=== PATIENT | female | born 1970 | race African-American/Black ===

== ENCOUNTER 2019-09-01 20:08 | Emergency (ER) | payer OTHER, SELFPAY ==
--- NOTE | ~2019-09-01 | XR_ITS ---
EXAMINATION: XR chest 1V portable 09/01/2019 20:56 INDICATION: Shortness of breath. PROCEDURE: AP portable chest COMPARISON: 04/12/2017 FINDINGS: The lungs are clear. The cardiomediastinal silhouette is within normal limits. There are no pleural effusions. There is no pneumothorax suspected. IMPRESSION: 1: NO ACUTE CARDIOPULMONARY DISEASE. Reviewed, dictated and finalized at location A.
[2019-09-01 20:10] VITALS: BP 159/101; PULSE 102; RESP 20; TEMP 36.5; O2SAT 100
[2019-09-01 20:34] VITALS: O2SAT 100
[2019-09-01 20:35] VITALS: BP 151/98; PULSE 83; RESP 15; O2SAT 100
--- NOTE | 2019-09-01 20:39 | ECG_ITS ---
Measurements Intervals [place] Rate: 87 P: 52 [place]: 149 QRS: 24 QRSD: 105 T: 15 QT: 348 QTc: 420 Interpretive Statements SINUS RHYTHM WITH SINUS ARRHYTHMIA EARLY PRECORDIAL R/S TRANSITION NONSPECIFIC T-WAVE ABNORMALITY- ANT/INF LEADS BORDERLINE ECG Electronically Signed On 09-02-2019 11:59:41 CDT by Vitor Sepulveda D.O.
[2019-09-01 20:57] VITALS: PULSE 79
[2019-09-01 20:59] LABS: Basophils Percent Auto 0.8 % (0.2-1.2); Eosinophils Percent Auto 0.6 % (0-4.4); Hematocrit 43.6 % (37.0-47.0); Hemoglobin 14.5 g/dL (12.0-15.0); Immature Granulocyte Absolute 0.02 K/mm3 (0.00-0.031); Immature Granulocyte Percent A 0.4 % (0-0.5); Lymphocytes Percent Auto 24.7 % (18.3-44.2); Mean Corpuscular HGB Conc 33.3 g/dl (32-36); Mean Corpuscular Hemoglobin 27.2 pg (26-34); Mean Corpuscular Volume 81.8 fl (80-100); Mean Platelet Volume 10.7 fl (7.4-10.4); Monocytes Absolute Auto 0.5 K/mm3 (0.1-0.6); Monocytes Percent Auto 8.9 % (2.6-8.5); Neutrophils Absolute Auto 3.4 K/mm3 (1.3-6.7); Neutrophils Percent Auto 64.6 % (45.5-73.1); Platelet Count Result 324 k/mm3 (150-375); Red Blood Count 5.33 M/mm3 (4.2-5.4); Red Cell Distribution Width 13.2 % (11.5-14.5); White Blood Count 5.3 K/mm3 (4.5-10.0)
[2019-09-01 21:09] LABS: INR 1.1; Prothrombin Time 13.4 Seconds (11.1-14.7)
[2019-09-01 21:10] LABS: Partial Thromboplastin Time 29.1 SECONDS (22.3-36.8)
[2019-09-01 21:11] LABS: Blood Urea Nitrogen 16 mg/dL (7-17); Calcium 9.9 mg/dL (8.4-10.2); Carbon Dioxide 30 mmol/L (22-30); Chloride 98 mmol/L (98-107); Estimated CRCL calculation 78 ml/min; Estimated Glomerular Filt Rate > 60; Glucose 106 mg/dL (65-105); Potassium 3.4 mmol/L (3.4-5.0); Sodium 136 mmol/L (137-145)
[2019-09-01 21:23] LABS: NT Pro B Type Natriuretic Pept < 11 PG/ML (5-100); Troponin I < 0.012 ng/mL (0.000-0.034)
[2019-09-01 21:32] LABS: D Dimer 0.53 ug/mL (<0.48)
--- NOTE | 2019-09-01 21:52 | ED.GENADULT ---
HPI - General Adult General Chief complaint: Shortness of Breath/Dyspnea Stated complaint: sob Time Seen by Provider: 09/01/19 21:41 History of Present Illness HPI narrative: Patient presents from the urgent care center for evaluation for possibility of DVT in the left calf. She has had left calf pain for 3 days without injury or trauma. She has no history of DVT. She has no shortness of breath. She was concerned that the urgent care practitioner saw spots on the chest x-ray. She has a private doctor,Dr. Rachel, which she can follow with tomorrow. She has hypertension tension and takes amlodipine. Her surgeries include left elbow, and tubal ligation. She does not smoke,, or do drugs, or drink alcohol. She also says she feels bloated since finishing up her antibiotics for her sinus infection, and then she says she has a headache of 7 out of 10 but does not want any pain medicine. Related Data Allergies Allergy/AdvReac Type Severity Reaction Status Date / Time No Known Allergies Allergy Unverified 04/12/17 00:19 Review of Systems Review of Systems: Narrative: CONSTITUTIONAL: Denies fever, chills, or sweats. EYES: Denies visual changes, redness, or discharge. ENT: Denies rhinorrhea, congestion, sore throat, or otalgia. CARDIOVASCULAR: Denies chest pain, palpitations, or edema. RESPIRATORY: Denies cough or dyspnea. GASTROINTESTINAL: Denies abdominal pain, nausea, vomiting, or diarrhea. GENITOURINARY: Denies dysuria or hematuria. SKIN: Denies rash or itching. MUSCULOSKELETAL: Denies back pain, joint pain, or myalgia. NEUROLOGIC: Denies headache, numbness, or weakness. . [facility] Past Medical History Medical History (Updated 09/01/19 @ 21:54 by Brandy Han MD) D-dimer, elevated Surgical History Surgical History (Updated 09/01/19 @ 21:54 by Brandy Han MD) History of tubal ligation Family History Family History (Updated 06/27/14 @ 14:41 by DOCTOR UNKNOWN) Mother Patient's mother is Acute myocardial infarction Father Patient's father is Acute myocardial infarction Social History Social History (Updated 09/01/19 @ 21:56 by Brandy Han MD) Smoking status: Former smoker Second hand tobacco smoke exposure: No Smoking end date: 02/23/00 Alcohol intake: never Substance use: never Gender identity (if verbalized by the patient): Female Exam Narrative: Exam Narrative: GENERAL: Well-appearing, well-nourished, and in no acute distress. Acute hair. HEAD: Normocephalic, atraumatic. EYES: PERRLA and EOMI. ENT: Nares clear, no rhinorrhea or epistaxis. Mucous membranes moist. NECK: Supple. CHEST: Clear to auscultation. No respiratory distress. HEART: Regular rate and rhythm. No murmur heard. Normal peripheral pulses. ABDOMEN: Soft, nontender, nondistended, normal active bowel sounds. EXTREMITIES: Normal range of motion. No edema. Both calves measure 17 inches at the fullest part. There is no cord posteriorly. There is no tenderness on exam. SKIN: Warm, dry, no rash. NEURO: No focal deficits. Alert and oriented x3. PSYCH: Normal mood and affect. Course Vital Signs Vital signs: Vital Signs Temperature 97.7 F 09/01/19 20:10 Pulse Rate 102 H 09/01/19 20:10 Respiratory Rate 20 09/01/19 20:10 Blood Pressure 159/101 H 09/01/19 20:10 Pulse Oximetry 100 09/01/19 20:10 Temperature 97.7 F 09/01/19 20:10 Pulse Rate 79 09/01/19 20:57 Respiratory Rate 15 09/01/19 20:35 Blood Pressure 151/98 H 09/01/19 20:35 Pulse Oximetry 100 09/01/19 20:35 Medical Decision Making Medical Records Medical records reviewed: Yes I reviewed the patient's medical records. Vital Signs Vital Signs: Vital Signs Temperature 97.7 F 09/01/19 20:10 Pulse Rate 102 H 09/01/19 20:10 Respiratory Rate 20 09/01/19 20:10 Blood Pressure 159/101 H 09/01/19 20:10 Pulse Oximetry 100 09/01/19 20:10 Temperature 97.7 F 09/01/19 20:10
[2019-09-01] MEDS: ENOXAPARIN 100 MG/ML SYRINGE SUB-Q (22:12)
[2019-09-01] MEDS: ACETAMINOPHEN 325 MG TABLET 650 MG PO (22:34)
[2019-09-01 22:36] VITALS: BP 165/116; PULSE 87; RESP 18; O2SAT 99
--- NOTE | 2019-09-01 22:37 | PC.NURSE ---
While going over d/c information Pt states she having a head and points to her forehead area, Pt then states she would like to take the doctor up on her offer for pain meds. Meds given as ordered. Ambulated with friend to car, no resp distress noted.
== END 2019-09-01 22:20 | disposition home or self-care (01) ==
PROVIDERS: Emergency Medicine Emergency Medical Services; Emergency Provider Emergency Medicine; PCP Internal Medicine Infectious Disease
DX: M79.662 Pain in left lower leg (principal); R79.1 Abnormal coagulation profile; Z87.891 Personal history of nicotine dependence; R94.31 Abnormal electrocardiogram [ECG] [EKG]
CPT/HCPCS: 36415; 71045; 80048; 83880; 84484; 85025; 85380; 85610; 85730; 93005; 96372; 99284; A9270; J1650

== ENCOUNTER 2019-09-02 07:27 | Outpatient (CLI) | payer OTHER, SELFPAY ==
--- NOTE | ~2019-09-02 | US_ITS ---
EXAMINATION: US venous doppler [facility] DATE: 09/02/2019 08:00 INDICATION: Left lower limb pain. TECHNIQUE: Grayscale ultrasound images without and with compression and Doppler ultrasound images of the left lower extremity veins were obtained. COMPARISON: None. FINDINGS: The visualized portions of left common femoral vein, profunda (deep) femoral vein, femoral vein, popl iteal vein, peroneal veins, posterior tibial veins, and greater saphenous vein outflow are patent. IMPRESSION: 1. No deep venous thrombosis. Reviewed, dictated and finalized at location A.
== END 2019-09-02 07:28 | disposition home or self-care (01) ==
LOC: ANHIMG 07:30
PROVIDERS: PCP Internal Medicine Infectious Disease; Visit Provider Emergency Medicine
DX: M79.662 Pain in left lower leg (principal)
CPT/HCPCS: 93971

== ENCOUNTER 2019-12-18 06:58 | Observation (INO) | payer OTHER, SELFPAY ==
[2019-12-18] VITALS (14 sets, daily range): BP systolic 122–170; BP diastolic 74–104; PULSE 67–115; RESP 11–20; TEMP 35.9–36.9; O2SAT 98–100; BMI 40.8
--- NOTE | ~2019-12-18 | CT_ITS ---
EXAMINATION: CTA chest PE abdomen DATE: 12/18/2019 15:18 INDICATION: Upper abdominal pain. TECHNIQUE: Computed tomography angiography (CTA) of the chest was performed with 100 mL Omnipaque-350 intravenous contrast timed to evaluate the pulmonary arteries. Coronal maximum intensity projection 3D-reconstructions were created by the technologist. Computed tomography (CT) of the abdomen was perf ormed with intravenous contrast. Automated exposure control and iterative reconstruction technique we re employed. The dose-length product was 1408.30 mGy-cm. COMPARISON: None. FINDINGS: CTA chest: There is mild atelectasis bilaterally. A calcified right lung nodule and calcified mediast inal lymph nodes are consistent with old granulomatous disease. No pleural effusion. The heart size i s normal. No pericardial effusion. There is no pulmonary embolus. There is mild thoracic spondylosis. CT abdomen: The liver and gallbladder are normal. Calcifications in the spleen are consistent with ol d granulomatous disease. The pancreas, adrenal glands, and kidneys are normal. There is a 14 mm perip herally calcified mass posterior to the liver, consistent with chronic fat necrosis. There are no pat hologically enlarged lymph nodes. There is no free intraperitoneal fluid. There is mild lumbar spondy losis. IMPRESSION: 1. No pulmonary embolus. Reviewed, dictated and finalized at location A. IMPRESSION: 1. No pulmonary embolus.
--- NOTE | ~2019-12-18 | XR_ITS ---
XR chest 2V DATE: 12/18/2019 07:51 INDICATION: Mid chest pain, cough TECHNIQUE: PA and lateral views COMPARISON: 09/01/2019 portable AP chest FINDINGS: Normal heart size. No hilar or mediastinal enlargement. No pulmonary infiltrate or consolid ation, pleural effusion or pulmonary vascular congestion or pneumothorax. Mild dextroscoliosis of the thoracic spine. IMPRESSION: No active cardiopulmonary disease Reviewed, dictated and finalized at location A.
--- NOTE | 2019-12-18 07:22 | ECG_ITS ---
Measurements Intervals [place] Rate: 102 P: 57 [place]: 137 QRS: 29 QRSD: 102 T: 12 QT: 336 QTc: 440 Interpretive Statements SINUS TACHYCARDIA BORDERLINE T WAVE ABNORMALITY- INFERIOR LEADS BASELINE WANDER- I, II, AVF BORDERLINE ECG Electronically Signed On 12-18-2019 8:13:55 CDT by Vitor Sepulveda D.O.
--- NOTE | 2019-12-18 07:40 | ED.CHESTPAIN ---
HPI - Chest Pain General Chief Complaint: Recheck/Abnormal Lab/Rx Stated Complaint: High BP Time Seen by Provider: 12/18/19 07:12 Source: patient Mode of arrival: ambulatory Limitations: no limitations History of Present Illness HPI narrative: Patient is a 49-year-old female complaining of chest discomfort, midsternal, mild, intermittent started approximately 3 days ago. Patient also states that her blood pressure bottom number is high. Denies any shortness of breath, nausea vomiting, diaphoresis or fever. Related Data Home Medications Medication Instructions Recorded Confirmed amlodipine 12/18/19 amoxicillin-pot clavulanate tablet 12/18/19 cholecalciferol (vitamin D3) 12/18/19 [Vitamin D3] hydrochlorothiazide 12/18/19 Allergies Allergy/AdvReac Type Severity Reaction Status Date / Time No Known Allergies Allergy Verified 12/18/19 07:30 Review of Systems Review of Systems: All systems reviewed & are unremarkable except as noted in HPI and below Constitutional: Constitutional: Denies body ache(s), Denies chills, Denies excessive sweating, Denies fatigue, Denies fever(s), Denies headache(s), Denies lethargy, Denies malaise, Denies weakness and Denies weight loss Eyes: Eyes: Denies blurry vision, Denies change in vision and Denies loss of vision ENT: Denies dizziness, Denies ear discharge, Denies headache(s), Denies lip swelling, Denies epistaxis, Denies nasal congestion, Denies neck pain, Denies throat swelling and Denies tongue swelling Cardiovascular: Cardiovascular: Denies diaphoresis, Denies rapid heart rate, Denies edema, Denies irregular heart rhythm, Denies lightheadedness, Denies palpitations, Denies dyspnea and Denies dyspnea on exertion Respiratory: Respiratory: Denies chest congestion, Denies cough, Denies hemoptysis, Denies dyspnea and Denies dyspnea on exertion Gastrointestinal: Gastrointestinal: Denies abdominal pain, Denies melena, Denies hematochezia, Denies diarrhea, Denies nausea, Denies vomiting and Denies hematemesis Musculoskeletal: Musculoskeletal: Denies abnormal gait, Denies deformity, Denies joint swelling, Denies limited range of motion, Denies neck pain and Denies numbness Neurologic: Denies Abnormal speech present, Denies abnormal gait, Denies confusion, Denies dizziness, Denies headache(s), Denies focal weakness, Denies loss of vision, Denies numbness, Denies Other visual disturbances, Denies Sensory deficit (Neuro) and Denies weakness Psychiatric: Psychiatric: Denies confusion, Denies depression, Denies auditory hallucinations, Denies homicidal ideation and Denies suicidal ideation Endocrine: Endocrine: Denies cold intolerance, Denies excessive sweating, Denies fatigue, Denies heat intolerance and Denies palpitations Hematologic/Lymphatic: Hematologic/Lymphatic: Denies easy bleeding and Denies easy bruising Allergic/Immunologic: Allergic/Immunologic: Denies lip swelling, Denies throat swelling and Denies tongue swelling PMFSH Past Medical History Medical History (Updated 12/18/19 @ 10:22 by Tony Monroy MD) D-dimer, elevated Surgical History Surgical History (Updated 09/01/19 @ 21:54 by Brandy Han MD) History of tubal ligation Family History Family History (Updated 06/27/14 @ 14:41 by DOCTOR UNKNOWN) Mother Patient's mother is Acute myocardial infarction Father Patient's father is Acute myocardial infarction Social History Social History (Updated 09/01/19 @ 21:56 by Brandy Han MD) Smoking status: Former smoker Second hand tobacco smoke exposure: No Smoking end date: 02/23/00 Alcohol intake: never Substance use: never Gender identity (if verbalized by the patient): Female Exam Const: General: cooperative, healthy appearing, comfortable, no acute distress, well developed, alert and awake; No confusion Orientation/consciousness: oriented to person, oriented to place, oriented to roberto
[2019-12-18 08:05] LABS: Basophils Percent Auto 0.5 % (0.2-1.2); Eosinophils Percent Auto 0.7 % (0-4.4); Hematocrit 47.5 % (37.0-47.0); Hemoglobin 15.2 g/dL (12.0-15.0); Immature Granulocyte Absolute 0.03 K/mm3 (0.00-0.031); Immature Granulocyte Percent A 0.5 % (0-0.5); Lymphocytes Absolute Auto 1.09 K/mm3 (0.9-3.2); Mean Corpuscular Hemoglobin 26.5 pg (26-34); Mean Corpuscular Volume 82.8 fl (80-100); Mean Platelet Volume 10.7 fl (7.4-10.4); Monocytes Absolute Auto 0.4 K/mm3 (0.1-0.6); Monocytes Percent Auto 5.8 % (2.6-8.5); Neutrophils Absolute Auto 4.5 K/mm3 (1.3-6.7); Neutrophils Percent Auto 74.5 % (45.5-73.1); Platelet Count Result 321 k/mm3 (150-375); Red Blood Count 5.74 M/mm3 (4.2-5.4); Red Cell Distribution Width 13.6 % (11.5-14.5); White Blood Count 6.1 K/mm3 (4.5-10.0)
[2019-12-18] MEDS: ASPIRIN 81 MG CHEWABLE TABLET 324 MG PO (08:08)
[2019-12-18] MEDS: NITROGLYCERIN SL 0.4 MG TABLET SUBLINGUAL (08:09)
--- NOTE | 2019-12-18 08:10 | PC.NURSE ---
Pt given sublinguil nitroglycerin for midsternal chest pain 06/01. bp 148/105.
[2019-12-18 08:17] LABS: Anion Gap 7 mmol/L (8-16); Blood Urea Nitrogen 14 mg/dL (7-17); Carbon Dioxide 34 mmol/L (22-30); Chloride 96 mmol/L (98-107); Estimated CRCL calculation 87 ml/min; Estimated Glomerular Filt Rate > 60; Glucose 140 mg/dL (65-105); Potassium 4.1 mmol/L (3.4-5.0); Sodium 137 mmol/L (137-145)
--- NOTE | 2019-12-18 08:27 | PC.NURSE ---
Pt states is painfree at present time after one nitroglycerin.
[2019-12-18 08:28] LABS: Troponin I < 0.012 ng/mL (0.000-0.034)
--- NOTE | 2019-12-18 10:40 | PC.NURSE ---
ANGELIA faxed to IMU. Marlene in IMU contacted and is aware that it is enroute. Pt updated that awaiting bed assignment.
[2019-12-18 10:58] LABS: Troponin I < 0.012 ng/mL (0.000-0.034)
--- NOTE | 2019-12-18 11:17 | PC.NURSE ---
Attempt to call IMU, floor unable to take report at present. Pt assisted to bathroom ambulatory.
--- NOTE | 2019-12-18 11:42 | PC.NURSE ---
IMU remains unable to take report at this time. States RN is busy and will call back as soon as possible.
[2019-12-18] MEDS: CALCIUM CARBONATE (TUMS) 500 MG (200 MG ELEMENTAL) PO ×2 (12:27→18:04)
--- NOTE | 2019-12-18 12:55 | PM.IMHP ---
H&P: HPI History of Present Illness Date/Time: 12/18/19 12:55 Chief complaint: CHEST PAIN Narrative: Juan Cabrera is a 49 year old female Who has a history of hypertension and hyperlipidemia. She has had no prior history of any heart disease. But thinks that her mother of a heart attack when the patient was a young child. The patient came into the emergency room complaining of some chest discomfort that has been going on for 3 days. She states that it is worse when she eats certain foods. If you touch that area it hurts worse. Though sometimes if you touch the midsternum it does relieve the discomfort. She tried some white soda and that did seem to help. Belching seems to help her discomfort. She recently was started on Augmentin for sinus infection several days ago. And has had an upset stomach. She has had no fevers or chills or shortness of breath. She says she has been taking all of her medication for her blood pressure. Patient stated that she does not have any discomfort that goes up her neck or down her arm. Though today her leg had some pain in it but she has osteoarthritis to her left knee that seems to be bothering her today. Troponins have been negative x2 so far. EKG was read as sinus tachycardia heart rate was 102. Borderline T-wave abnormality. Patient has is having some indigestion now and is requesting times. Chest x-ray was read as no acute cardiopulmonary disease. The patient stated that she had stress test in the past but it was negative and she was placed on some medicine for blood pressure. It looks like the patient had a short stay summary here back in 2014 where she had chest pain. Her blood pressure was noted to be in the 180s to 170s at that time. It was felt that her elevated blood pressure was causing her chest pain at that time. The patient was in the emergency room here in August and had an elevated D-dimer. She had venous Dopplers performed and they were negative. Patient is being admitted to IMU as observation for complaints of chest pain which is left upper quadrant discomfort. Date of service is 12/18/2019 Review of Systems Review of Systems: All systems reviewed & are unremarkable except as noted in HPI and below Constitutional: Constitutional: Reports as per HPI and Reports no additional constitutional complaints Eyes: Eyes: Reports as per HPI and Reports no additional eye complaints ENT: Reports system reviewed and no additional complaints, except as documented and Reports Normal hearing present Cardiovascular: Cardiovascular: Reports no additional cardiovascular complaints Respiratory: Respiratory: Reports no additional respiratory complaints and Reports no additional respiratory complaints Gastrointestinal: Gastrointestinal: Reports as per HPI and Reports no additional gastrointestinal complaints Musculoskeletal: Musculoskeletal: Reports no additional musculoskeletal complaints Integumentary/Breasts: Skin/Breast: Reports system reviewed and no additional complaints, except as docu and Reports as per HPI Neurologic: Reports system reviewed and no additional complaints, except as documented, Reports as per HPI and Reports Normal hearing present Psychiatric: Psychiatric: Reports no additional psychiatric complaints and Reports as per HPI Endocrine: Endocrine: Reports no additional endocrine complaints Hematologic/Lymphatic: Hematologic/Lymphatic: Reports no additional hematologic/lymphatic complaints Allergic/Immunologic: Allergic/Immunologic: Reports no additional allergic/immunologic complaints PMFSH Past Medical History Medical History (Updated 12/18/19 @ 13:05 by Leslie Thomas NP) D-dimer, elevated Hyperlipidemia she has a take any medication for this anymore Hypertension, uncontrolled Osteoarthritis of left knee Surgical History Surgical History (Updated 12/18/19 @ 13:05 by Leslie Thomas NP) H/O elbow surgery on the right History of s
[2019-12-18 13:45] LABS: Add Urine Microscopic? YES; Appearance Urine Clear (Clear); Bilirubin Urine Negative (Negative); Blood Urine Negative (Negative); Color Urine Yellow (Yellow); Glucose Urine UA Negative (Negative); Ketones Urine Trace mg/dL (Negative); Leukocyte Esterase Ur Negative LEU/UL (NEGATIVE); Mucus Urine Few /lpf; Nitrate Urine Negative (Negative); Protein Urine Negative (Negative); RBC Urine 0-2 /hpf (0-2); Specific Grav Ur 1.016 (1.001-1.035); Squamous Epithelial Cell Urine Rare /hpf (Few); Urobilinogen Urine Negative mg/dL (<2.0); WBC Urine 0-3 /hpf (0-3)
[2019-12-18 14:12] LABS: Troponin I < 0.012 ng/mL (0.000-0.034)
[2019-12-18 14:37] LABS: Beta HCG Quantitative 3.71 mIU/ML
[2019-12-18] MEDS: amLODIPine BESYLATE 2.5 MG TABLET PO (17:07)
[2019-12-18 17:45] LABS: Troponin I < 0.012 ng/mL (0.000-0.034)
--- NOTE | 2019-12-18 17:58 | PC.NURSE ---
This patient, Juan Cabrera, was transferred to [facility] on 12/18/19 at 1758. Personal belongings sent with patient. Report given to DEMI Mancilla. Appropriate documentation sent with patient.
--- NOTE | 2019-12-18 18:02 | PC.NURSE ---
1803-Transfer received from IMU. Report received from Kelley SIMMS. Patient oriented to the room.
[2019-12-18] MEDS: FAMOTIDINE 20 MG/2 ML VIAL IV PUSH (21:41)
[2019-12-19] MEDS: BELLADONNA ALK/PHENOB ELIX 10 ML, MAG HYDROX/ALUMINUM HYD/SIMETH 30 ML, LIDOCAINE HCL 2... PO (00:19)
--- NOTE | 2019-12-19 04:50 | ECG_ITS ---
Measurements Intervals [place] Rate: 62 P: 44 [place]: 157 QRS: 19 QRSD: 106 T: 9 QT: 396 QTc: 405 Interpretive Statements SINUS RHYTHM INCOMPLETE RIGHT BUNDLE BRANCH BLOCK VOLTAGE CRITERIA FOR LVH NONSPECIFIC T-WAVE ABNORMALITY- INFERIOR LEADS BORDERLINE ECG Electronically Signed On 12-19-2019 7:02:13 CDT by Vitor Sepulveda D.O.
[2019-12-19] MEDS: CALCIUM CARBONATE (TUMS) 500 MG (200 MG ELEMENTAL) PO (04:55)
[2019-12-19] MEDS: NITROGLYCERIN SL 0.4 MG TABLET SUBLINGUAL (05:00)
[2019-12-19 05:40] LABS: Basophils Percent Auto 0.7 % (0.2-1.2); Eosinophils Absolute Auto 0.1 K/mm3 (0-0.3); Eosinophils Percent Auto 1.8 % (0-4.4); Hematocrit 45.5 % (37.0-47.0); Hemoglobin 14.5 g/dL (12.0-15.0); Immature Granulocyte Absolute 0.02 K/mm3 (0.00-0.031); Immature Granulocyte Percent A 0.3 % (0-0.5); Lymphocytes Absolute Auto 2.09 K/mm3 (0.9-3.2); Lymphocytes Percent Auto 34.4 % (18.3-44.2); Mean Corpuscular HGB Conc 31.9 g/dl (32-36); Mean Corpuscular Hemoglobin 26.7 pg (26-34); Mean Corpuscular Volume 83.8 fl (80-100); Mean Platelet Volume 10.7 fl (7.4-10.4); Monocytes Absolute Auto 0.5 K/mm3 (0.1-0.6); Monocytes Percent Auto 8.9 % (2.6-8.5); Neutrophils Absolute Auto 3.3 K/mm3 (1.3-6.7); Neutrophils Percent Auto 53.9 % (45.5-73.1); Platelet Count Result 328 k/mm3 (150-375); Red Blood Count 5.43 M/mm3 (4.2-5.4); Red Cell Distribution Width 13.7 % (11.5-14.5); White Blood Count 6.1 K/mm3 (4.5-10.0)
[2019-12-19 05:43] LABS: Lipase 92 U/L (23-300)
[2019-12-19 05:44] LABS: Alanine Aminotransferase 21 U/L (4-35); Albumin Level 4.3 g/dL (3.5-5.1); Alkaline Phosphatase 93 U/L (38-126); Anion Gap 7 mmol/L (8-16); Aspartate Amino Transferase 26 U/L (14-36); Bilirubin,Total 0.9 mg/dL (0.2-1.3); Blood Urea Nitrogen 16 mg/dL (7-17); Carbon Dioxide 32 mmol/L (22-30); Chloride 98 mmol/L (98-107); Cholesterol 232 mg/dL (0-200); Estimated CRCL calculation 68 ml/min; Estimated Glomerular Filt Rate > 60; Glucose 116 mg/dL (65-105); HDL Direct 65 mg/dL; Magnesium 2.2 mg/dL (1.6-2.3); Potassium 3.6 mmol/L (3.4-5.0); Sodium 137 mmol/L (137-145); Triglycerides 77 mg/dL (<150)
[2019-12-19 05:55] LABS: LDL Cholesterol Direct 123 mg/dL
[2019-12-19 05:57] VITALS: BP 141/83; PULSE 81; RESP 20; TEMP 36.3; O2SAT 100
[2019-12-19] MEDS: CHOLECALCIFEROL 1,000 UNITS TABLET 2000 UNITS PO (08:24)
[2019-12-19] MEDS: FAMOTIDINE 20 MG/2 ML VIAL IV PUSH (08:25)
[2019-12-19] MEDS: amLODIPine BESYLATE 5 MG TABLET PO (08:34)
--- NOTE | 2019-12-19 12:56 | PM.DS ---
DS: Admitting Diagnosis Admitting Diagnosis Admitting Diagnosis: CHEST PAIN DS: Discharge Diagnosis Discharge Diagnosis (1) Chest pain at rest: Code(s): R07.9 - Chest pain, unspecified Status: Acute Assessment and Plan: Patient presented with complaints of mid-sternal, mild, intermittent chest pain that occurred at rest and had been ongoing for 3 days. Troponins negative x3. EKG showed sinus rhythm with RBBB. CTA was negative for PE with no other acute findings. CXR showed no acute cardiopulmonary disease. Pain was reproducible with palpation of chest wall. Pain was relieved by belching. Symptoms were felt to be secondary to GERD. ACS no suspected. She has no personal cardiac history. She does report a family history of CAD and her mother from an [facility]. Her chest pain resolved entirely. (2) GERD (gastroesophageal reflux disease): Code(s): K21.9 - Gastro-esophageal reflux disease without esophagitis Status: Acute Assessment and Plan: Symptoms felt to be related to GERD. She noted that her chest pain was worse when eating certain foods. She had improvement with GI cocktail. She reports eating whole tomatoes regularly and multiple other acidic foods. We discussed dietary and lifestyle changes to help improve her symptoms. She was started on daily Pepcid. (3) Hypertension, uncontrolled: Code(s): I10 - Essential (primary) hypertension Status: Chronic Assessment and Plan: Blood pressure was initially elevated upon presentation up to 170/104. Improved with amlodipine. BP improved significantly but did remain mildly elevated in the 150-160. Her amlodipine was increased to 5 mg daily. Continue hydrochlorothiazide. At time of discharge, BP improved to 135/78. (4) Hyperlipidemia: Code(s): E78.5 - Hyperlipidemia, unspecified Status: Chronic (5) Acute sinus infection: Code(s): J01.90 - Acute sinusitis, unspecified Status: Acute Assessment and Plan: Recently seen at Urgent Care and started on Augmentin for sinus infection. She should complete this course of antibiotics. Her symptoms have improved. She did complain of some GI upset related to this medication and she was given a probiotic. DS: Summary Hospital Course Reason for hospitalization: Chest pain Hospital Course: Date of admission: 12/18/2019 Date of discharge: 12/19/2019 Juan Cabrera is a 49 year old female with a history of HTN, HLD, and OA of left knee who presented to the emergency department on 12/18/2019 with complaints of intermittent chest pain ongoing for 3 days with no associated SOB, N/V, or diaphoresis. Pain worsened with certain foods. At presentation, BP was elevated at 170/104, HR 115, additional VSS, CBC normal, bicarb slightly elevated at 34, troponin <0.012, and CXR showed no acute cardiopulmonary disease. She was admitted to the hospitalist service for further evaluation and management. Please see above for further details. Her pain resolved. Symptoms seemed to be related to GERD. Lifestyle changes and dietary modifications discussed. Given her overall improvement, she was determined to no longer require inpatient care and was felt to be stable for discharge. She was comfortable with return home. We discussed worrisome signs and symptoms for which to return and she was educated on her medications. She will follow up with her PCP in 1-2 weeks. She was discharged in hemodynamically stable condition on 12/19/2019. Status at Discharge Functional status at discharge: independent ambulation Overall status at discharge: patient is progressing back to baseline Time Spent with Patient Time attestation: Total time spent providing and/or coordinating discharge services: 45 minutes Time spent: Greater than 30 minutes Exam Narrative: Exam Narrative: ms. Cabrera is an overweight, well-appearing 49-year-old female who is lying semi-recumbent in bed. She appears comfortable and
[2019-12-19 13:28] VITALS: BP 135/78; PULSE 80; RESP 18; TEMP 36.6; O2SAT 97
== END 2019-12-19 14:00 | disposition home or self-care (01) ==
LOC: ANHED 10:22 → ANHIMU 10:38 → ANH2MED 17:53
PROVIDERS: Family Medicine; Nurse Practitioner; Admitting Provider Family Medicine; Emergency Provider Emergency Medicine; PCP Internal Medicine Infectious Disease; Visit Provider Physician Assistant
DX: K21.9 Gastro-esophageal reflux disease without esophagitis (principal); I10 Essential (primary) hypertension; E78.5 Hyperlipidemia, unspecified; M17.12 Unilateral primary osteoarthritis, left knee; Z87.891 Personal history of nicotine dependence; J01.90 Acute sinusitis, unspecified; Z79.899 Other long term (current) drug therapy
CPT/HCPCS: 36415; 71046; 71275; 74160; 80048; 80053; 80061; 81001; 82728; 83690; 83735; 84484; 84702; 85025; 93005; 96374; 99285; A9270; G0378; Q9967

== ENCOUNTER 2021-04-03 06:48 | Emergency (ER) | payer OTHER, SELFPAY ==
--- NOTE | ~2021-04-03 | XR_ITS ---
EXAMINATION: XR chest 2V DATE: 04/03/2021 07:06 INDICATION: Chest pain TECHNIQUE: PA and lateral views of the chest were obtained. COMPARISON: Chest radiograph and CT dated 12/18/2019 FINDINGS: Calcified nodule at the right lower lung zone consistent with old granulomatous disease. No other air space opacities, pulmonary edema, pleural effusion or pneumothorax. The cardiomediastinal silhouette is normal. Visualized bones and soft tissues are unremarkable. IMPRESSION: 1. No acute cardiopulmonary disease. Reviewed, dictated and finalized at location A. ERY OPERATOR
--- NOTE | 2021-04-03 06:52 | ECG_ITS ---
Measurements Intervals [place] Rate: 79 P: 52 [place]: 154 QRS: 11 QRSD: 110 T: 14 QT: 361 QTc: 415 Interpretive Statements SINUS RHYTHM WITH SINUS ARRHYTHMIA INCOMPLETE RIGHT BUNDLE BRANCH BLOCK BORDERLINE ECG Electronically Signed On 04-03-2021 7:58:01 PHOTO TECHNOLOGIST by Vitor Sepulveda D.O.
[2021-04-03 07:15] VITALS: BP 160/91; PULSE 84; RESP 16; TEMP 36.6; O2SAT 100
[2021-04-03 07:25] VITALS: O2SAT 100
[2021-04-03 07:48] LABS: Partial Thromboplastin Time 29.2 SECONDS (22.3-36.8)
[2021-04-03 07:51] LABS: Basophils Percent Auto 0.6 % (0.2-1.2); Eosinophils Absolute Auto 0.1 K/mm3 (0-0.3); Eosinophils Percent Auto 1.3 % (0-4.4); Hematocrit 40.3 % (37.0-47.0); Hemoglobin 13.2 g/dL (12.0-15.0); Immature Granulocyte Absolute 0.05 K/mm3 (0.00-0.031); Immature Granulocyte Percent A 0.9 % (0-0.5); Lymphocytes Absolute Auto 0.96 K/mm3 (0.9-3.2); Lymphocytes Percent Auto 17.7 % (18.3-44.2); Mean Corpuscular HGB Conc 32.8 g/dl (32-36); Mean Corpuscular Hemoglobin 26.7 pg (26-34); Mean Corpuscular Volume 81.6 fl (80-100); Mean Platelet Volume 10.7 fl (7.4-10.4); Monocytes Absolute Auto 0.4 K/mm3 (0.1-0.6); Monocytes Percent Auto 7.2 % (2.6-8.5); Neutrophils Absolute Auto 3.9 K/mm3 (1.3-6.7); Neutrophils Percent Auto 72.3 % (45.5-73.1); Platelet Count Result 315 k/mm3 (150-375); Red Blood Count 4.94 M/mm3 (4.2-5.4); Red Cell Distribution Width 13.3 % (11.5-14.5); White Blood Count 5.4 K/mm3 (4.5-10.0)
[2021-04-03 07:53] LABS: Prothrombin Time 13.2 Seconds (11.1-14.7)
[2021-04-03 07:55] LABS: Alanine Aminotransferase 19 U/L (4-35); Albumin Level 4.3 g/dL (3.5-5.1); Alkaline Phosphatase 97 U/L (38-126); Anion Gap 6 mmol/L (8-16); Aspartate Amino Transferase 33 U/L (14-36); Bilirubin,Total 0.9 mg/dL (0.2-1.3); Blood Urea Nitrogen 12 mg/dL (7-17); Calcium 9.4 mg/dL (8.4-10.2); Carbon Dioxide 28 mmol/L (22-30); Chloride 101 mmol/L (98-107); Estimated CRCL calculation 83 ml/min; Estimated Glomerular Filt Rate > 60; Glucose 121 mg/dL (65-110); Lipase 81 U/L (23-300); Potassium 3.6 mmol/L (3.4-5.0); Sodium 135 mmol/L (137-145)
--- NOTE | 2021-04-03 08:24 | ED.CHESTPAIN ---
HPI - Chest Pain General Chief Complaint: Chest Pain Stated Complaint: chest pain Time Seen by Provider: 04/03/21 08:02 Source: patient Mode of arrival: ambulatory Limitations: no limitations History of Present Illness HPI narrative: Patient is 50 years old -[place] female presents with pain left upper chest, sharp, stabbing, worse with breathing started epic trainer after getting up from sleep and during walking to the bathroom. Patient denies shortness of breath or radiation of pain. Patient lifted heavy boxes 2 days ago at a new job at a [employer],. History of hypertension, denies of smoking, drinking or using drugs. No family history of coronary artery disease Related Data Home Medications Medication Instructions Recorded Confirmed amoxicillin-pot clavulanate 1 tablet PO Q12H 12/18/19 12/18/19 cholecalciferol (vitamin D3) 50 mcg PO DAILY 12/18/19 12/18/19 [Vitamin D3] hydrochlorothiazide 25 mg PO DAILY 12/18/19 12/18/19 Allergies Allergy/AdvReac Type Severity Reaction Status Date / Time No Known Allergies Allergy Verified 12/18/19 12:57 Review of Systems Review of Systems: CONSTITUTIONAL: Denies fever, chills, or sweats. EYES: Denies visual changes, redness, or discharge. ENT: Denies rhinorrhea, congestion, sore throat, or otalgia. CARDIOVASCULAR: Denies chest pain, palpitations, or edema. RESPIRATORY: Denies cough or dyspnea. GASTROINTESTINAL: Denies abdominal pain, nausea, vomiting, or diarrhea. GENITOURINARY: Denies dysuria or hematuria. SKIN: Denies rash or itching. MUSCULOSKELETAL: Denies back pain, joint pain, or myalgia. NEUROLOGIC: Denies headache, numbness, or weakness. PSYCHIATRIC: Denies anxiety or depression. [facility] Past Medical History Medical History D-dimer, elevated Hyperlipidemia she has a take any medication for this anymore Hypertension, uncontrolled Osteoarthritis of left knee Surgical History Surgical History H/O elbow surgery on the right History of section, classical History of tubal ligation Family History Family History Mother Acute myocardial infarction Patient's mother is Father Acute myocardial infarction Patient's father is Sibling Hypertension Heart failure Diabetes mellitus Cerebrovascular accident Social History Social History Social History: the patient lives with her Kolton. Kolton is a durable power attorney recruiter for healthcare. She is a full code. She denies any alcohol marijuana or illicit drug use. The patient stated that she used to smoke about 20 years ago. Up to a pack a cigarettes a day. She works as a personal skin care consultant. She has 3 children. Smoking packs per day: 1 Smoking cigarettes per day: 20.0 Years smoked: 4 Smoking pack-years: 4.00 Smoking status: Former smoker Second hand tobacco smoke exposure: No Alcohol intake: never Substance use: never Gender identity (if verbalized by the patient): Female Spiritual care concerns: No Exam Narrative: General appearance: Well-developed, well-nourished Skin: Normal color Head: Normocephalic, nontraumatic Eyes: Clear conjunctiva ENT: Oropharynx normal, ears normal, nose normal Neck: Supple, nontender Chest and respiratory: Airway patent, no respiratory distress, no accessory muscle use, moderate tenderness left upper chest with light palpation, no bruises, no swelling, no rash Heart: Regular rate/rhythm Abdomen: Soft, nontender, no organomegaly, quiet bowel sounds Vascular: Normal peripheral pulses, normal capillary refill. Musculoskeletal: Normal range of motion, nontender back Neurologic: Alert and oriented ?3, WINE BLENDER is normal as tested, no gross motor deficit
[2021-04-03] MEDS: KETOROLAC 30 MG/ML VIAL (*BKC) IV PUSH (08:44)
[2021-04-03 09:33] VITALS: BP 144/96; PULSE 70; RESP 15; O2SAT 98
== END 2021-04-03 09:35 | disposition home or self-care (01) ==
PROVIDERS: Emergency Medicine; Emergency Provider Emergency Medicine; PCP Internal Medicine Infectious Disease
DX: R07.9 Chest pain, unspecified (principal); I10 Essential (primary) hypertension; M19.90 Unspecified osteoarthritis, unspecified site
CPT/HCPCS: 36415; 71046; 80053; 83690; 84484; 85025; 85610; 85730; 93005; 96374; 99284; J1885

== ENCOUNTER 2022-03-25 19:37 | Emergency (ER) | payer OTHER, SELFPAY ==
--- NOTE | ~2022-03-25 | CT_ITS ---
EXAMINATION: CT brain wo con INDICATION: Head injury COMPARISON: None TECHNIQUE: Standard unenhanced head CT. The dose-length product (DLP) was 605.33 mGy-cm. The mA was a djusted according to patient size. Iterative reconstruction technique was employed. FINDINGS: There is no intracranial hemorrhage, acute infarction, or abnormal mass lesion. The ventric les are normal. There is no abnormal mass effect or midline shift. The pruitt-white matter differentiat ion is normal. The basal cisterns are patent. There is a posterior scalp hematoma. The orbits are nor mal. The paranasal sinuses, mastoids and calvarium are normal. IMPRESSION: 1. Posterior scalp hematoma without acute intracranial abnormality. Reviewed, dictated and finalized at location F. HER TENDER HELPER
--- NOTE | ~2022-03-25 | CT_ITS ---
EXAMINATION: CT cervical spine wo con DATE: 03/25/2022 20:13 INDICATION: Head injury TECHNIQUE: Computed tomography (CT) of the cervical spine was performed without intravenous contrast. The dose-length product (DLP) was 430.74 mGy-cm. Automated exposure control and iterative reconstruc tion technique were employed. COMPARISON: None FINDINGS: There is 1 mm of anterolisthesis of C4 on C5. There is 1 mm of retrolisthesis C6 on C7. The vertebral body heights are maintained. There is anterior and posterior fusion at C2-3. There is mode rate loss of intervertebral disc space height at C5-6 and C6-7. Small degenerative osteophytes projec t from the anterior endplates of multiple vertebral bodies. The prevertebral soft tissues are normal. The odontoid process is intact. There is [id number] there is fibrous union of the posterior C1 arch. Multilevel facet and uncovertebral joint osteoarthritis. IMPRESSION: 1. Mild/moderate cervical spondylosis without acute findings. Reviewed, dictated and finalized at location F. Y CHILDHOOD EDUCATION INSTRUCTOR
[2022-03-25 19:41] VITALS: BP 166/99; PULSE 75; RESP 20; TEMP 36.8; O2SAT 100
--- NOTE | 2022-03-25 21:45 | ED.HEATRA ---
HPI - Head Injury General Chief complaint: Head Injury Stated complaint: fall, head trauma Time Seen by Provider: 03/25/22 20:45 Source: patient Mode of arrival: ambulatory Limitations: no limitations History of Present Illness HPI Narrative: Patient is a 51 y/o female who presents to the ED with c/o head injury. Patient reports she slipped on a patch of ice just prior to arrival and fell backwards, hitting her posterior head against the ground. She thinks she may have lost consciousness for a few seconds, but came to quickly. She was able to get up off the ground and ambulate on her own. She then came here. Patient is not on any blood thinners. She complains of pain to her posterior head and left-sided neck, into her left shoulder. She was placed in c-collar upon arrival. Patient has not taken anything for pain. She denies any other extremity injuries. Denies chest pain, difficulty breathing. Denies nausea, vomiting, dizziness, lightheadedness, vision changes, confusion, weakness. Related Data Home Medications Medication Instructions Recorded Confirmed amoxicillin 875 mg-potassium 1 tablet PO Q12H 12/18/19 12/18/19 clavulanate 125 mg tablet cholecalciferol (vitamin D3) 50 50 mcg PO DAILY 12/18/19 12/18/19 mcg (2,000 unit) capsule (Vitamin D3) hydrochlorothiazide 25 mg tablet 25 mg PO DAILY 12/18/19 12/18/19 Allergies Allergy/AdvReac Type Severity Reaction Status Date / Time No Known Allergies Allergy Verified 12/18/19 12:57 Review of Systems Review of Systems: CONSTITUTIONAL: Denies fever, chills, or sweats. EYES: Denies visual changes. CARDIOVASCULAR: Denies chest pain. RESPIRATORY: Denies dyspnea. GASTROINTESTINAL: Denies abdominal pain, nausea, vomiting. MUSCULOSKELETAL: See HPI. NEUROLOGIC: See HPI. All systems reviewed & are unremarkable except as noted in HPI and below PMFSH Past Medical History Medical History D-dimer, elevated Hyperlipidemia she has a take any medication for this anymore Hypertension, uncontrolled Osteoarthritis of left knee Surgical History Surgical History H/O elbow surgery on the right History of section, classical History of tubal ligation Family History Family History Mother Acute myocardial infarction Patient's mother is Father Acute myocardial infarction Patient's father is Sibling Hypertension Heart failure Diabetes mellitus Cerebrovascular accident Social History Social History Social History: the patient lives with her Kolton. Kolton is a durable power corporate associate attorney for healthcare. She is a full code. She denies any alcohol marijuana or illicit drug use. The patient stated that she used to smoke about 20 years ago. Up to a pack a cigarettes a day. She works as a personal primary care nurse practitioner. She has 3 children. Smoking packs per day: 1 Smoking cigarettes per day: 20.0 Years smoked: 4 Smoking pack-years: 4.00 Smoking status: Former smoker Second hand tobacco smoke exposure: No Alcohol intake: never Substance use: never Living arrangements: with family Occupation/Education: occupation Gender identity (if verbalized by the patient): Female Spiritual care concerns: No Exam Narrative: GENERAL: Well appearing, obese, non-toxic, in no acute distress. HEAD: Normocephalic. Tender hematoma to L posterior scalp. No wounds. EYES: PERRLA/EOMI, conjunctiva clear. No pain with EOM. NECK: Supple. No adenopathy, no masses. Full range of motion. No significant midline cervical spinal tenderness. Mild left-sided paraspinous muscle tenderness, extending into left superior shoulder. RESPIRATORY: Airway patent, respirations nonlabored. Clear to auscultation bilaterally,
[2022-03-25] MEDS: IBUPROFEN 600 MG TABLET PO (22:27)
== END 2022-03-25 22:28 | disposition home or self-care (01) ==
PROVIDERS: Emergency Provider Physician Assistant; PCP Internal Medicine Infectious Disease
DX: S00.03XA Contusion of scalp, initial encounter (principal); S16.1XXA Strain of muscle, fascia and tendon at neck level, initial encounter; I10 Essential (primary) hypertension; W00.0XXA Fall on same level due to ice and snow, initial encounter
CPT/HCPCS: 70450; 72125; 99284; A9270

== ENCOUNTER 2022-07-03 08:43 | Outpatient (CLI) | payer OTHER, SELFPAY ==
--- NOTE | ~2022-07-03 | XR_ITS ---
EXAMINATION: XR_ENEMABAC_CR DATE: 07/03/2022 10:01 INDICATION: Incomplete colonoscopy TECHNIQUE: A group therapist radiograph was obtained. A catheter was inserted into the patient's rectum. Contra st was infused by gravity. Gas was infused by hand pump. Fluoroscopic spot images and conventional ra diographs were obtained. Fluoroscopy exposure time was 3.8 minutes. The DAP for this procedure was 18 4.488 Gycm2. 28 images were obtained. COMPARISON: None. FINDINGS: Aerospace Manager image demonstrates a calcified mass of the pelvis, possibly reflecting a uterine fibr oid. Phleboliths are noted in the left pelvis. There is mild osteoarthritis of the hips. The bowel ga s pattern is normal. No mass or stricture of the colon are identified. Occasional diverticula are not ed. IMPRESSION: 1. Occasional diverticula, otherwise unremarkable barium enema. Reviewed, dictated and finalized at location A.
== END 2022-07-03 08:44 | disposition home or self-care (01) ==
PROVIDERS: PCP Internal Medicine Infectious Disease; Visit Provider Internal Medicine Gastroenterology
DX: Z53.09 Procedure and treatment not carried out because of other contraindication (principal)
CPT/HCPCS: 74280